=== PATIENT | female | born 1990 | race African-American/Black ===

== ENCOUNTER 2024-04-27 23:24 | Inpatient (IN) | payer MEDICAID ==
[~2024-04-27] VITALS: Ht 165.1 cm; Wt 115.7 kg
[2024-04-27 23:30] VITALS: BP 141/80; PULSE 104; RESP 20; TEMP 98.4; O2SAT 98
[2024-04-28 00:27] LABS: BASOPHILS % (AUTO) 0.2 % (0.0-2.0); EOSINOPHILS # (AUTO) 0.1 K/uL (0-0.4); EOSINOPHILS % (AUTO) 1.1 % (0.0-4.0); HEMATOCRIT 31.5 % (36-48); HEMOGLOBIN 9.9 g/dL (12.0-16.0); LYMPHOCYTES # (AUTO) 2.2 K/uL (2.5-16.5); LYMPHOCYTES % (AUTO) 19.9 % (20.5-51.1); MEAN CORPUSCULAR HEMOGLOBIN 24 pg (27-31); MEAN CORPUSCULAR HGB CONC 31 g/dL (33-37); MEAN CORPUSCULAR VOLUME 77.3 fL (80-94); MONOCYTES # (AUTO) 0.8 K/uL (0.8-1.0); MONOCYTES % (AUTO) 7.4 % (1.7-9.3); NEUTROPHILS # (AUTO) 7.7 K/uL (1.8-7.7); NEUTROPHILS % (AUTO) 71.4 % (42.2-75.2); PLATELET COUNT (AUTO) 362 K/uL (140-450); RED BLOOD CELL COUNT(AUTO) 4.08 MIL/uL (4.20-5.40); RED CELL DISTRIBUTION WIDTH 16.4 % (11.6-13.7); WHITE BLOOD COUNT (AUTO) 10.8 K/uL (4.8-10.8)
[2024-04-28 00:40] LABS: ANION GAP 12.5 (8-16); CALCIUM 9.4 mg/dL (8.5-10.1); CARBON DIOXIDE 26.2 mmol/L (21-32); CREATININE 0.9 mg/dL (0.6-1.3); POTASSIUM 3.7 mmol/L (3.5-5.1)
[2024-04-28 00:43] LABS: INR 1.05 (0.8-1.2); PARTIAL THROMBOPLASTIN TIME 23.7 secs (22-35.6)
[2024-04-28] MEDS: ASPIRIN 325 MG TAB PO ONE (00:57)
[2024-04-28] MEDS: ACETAMINOPHEN EXTRA STRENGTH 500 MG TAB PO ONE (00:58)
[2024-04-28] MEDS: MAG SULF 2000 MG/WATER PREMIX 50 ML IV ONE (01:05)
[2024-04-28] MEDS: KETOROLAC 30 MG/ML VIAL IVP ONE (01:11)
[2024-04-28] MEDS ORDERED: HYDROcodone/APAP 5/325 MG 1 TAB TAB PO PRN (02:55)
[2024-04-28] MEDS ORDERED: LORazepam 2 MG/ML VIAL IVP PRN (02:55)
[2024-04-28] MEDS ORDERED: ACETAMINOPHEN 325 MG TAB PO PRN (02:55)
[2024-04-28 08:01] VITALS: BP 105/61; PULSE 79; RESP 15; TEMP 98.1; O2SAT 98
[2024-04-28] MEDS: ASPIRIN 81 MG TAB.CHEW PO SCH (08:49)
[2024-04-28 09:17] LABS: BILIRUBIN,URINE NEGATIVE (NEGATIVE); BLOOD, URINE NEGATIVE (NEGATIVE); COLOR,URINE YELLOW (YELLOW); LEUKOCYTE ESTERASE ,URINE NEGATIVE (NEGATIVE); NITRITE, URINE NEGATIVE (NEGATIVE); PH,URINE 6.5 (5.0-9.0); PROTEIN,URINE NEGATIVE (NEGATIVE); UGLUCOSE NEGATIVE (NEGATIVE); UROBILINOGEN,URINE 0.2 EU/dL (0.2 - 1)
[2024-04-28 09:18] LABS: APPEARANCE,URINE SLIGHTLY HAZY (CLEAR)
[2024-04-28] MEDS ORDERED: ASPI-1822 PO (10:36)
== END 2024-04-28 11:10 | disposition home or self-care (01) | DRG 54 ==
LOC: MED 23:24 → MTU 04-28 02:56 → MMU 04-28 06:00
PROVIDERS: ADMIT Student in an Organized Health Care Education/Training Program; ATTEND Student in an Organized Health Care Education/Training Program
DX: G43.809 Other migraine, not intractable, without status migrainosus (principal); Z88.0 Allergy status to penicillin
CPT/HCPCS: 36415; 70450; 71045; 80048; 81003; 84484; 85025; 85610; 85730; 86886; 86900; 86901; 87081; 93005; 96365; 96366; 96375; 99291; J1885; J3475; Q0092; Q9967